=== PATIENT | female | born 1975 | race Caucasian/White ===

== ENCOUNTER → 2018-09-17 | Outpatient (CLI) | payer OTHER ==
[2018-09-17 15:16] LABS: ABSOLUTE MONOCYTES 0.2 thou/uL (0.0-1.2); ABSOLUTE NEUTROPHILS 3.1 thou/uL (1.6-8.1); BASOPHILS 0.7 %; HEMATOCRIT 43.7 % (37.0-47.0); HEMOGLOBIN 14.7 gm/dL (12.0-15.0); LYMPHOCYTES 22.7 %; MCH 29.2 pg (26.0-34.0); MCHC 33.6 g/dL (28.0-37.0); MCV 86.9 fL (80.0-100.0); MONOCYTES 5.5 %; MPV 7.1 fl. (7.2-11.1); NUCLEATED RBCS 0 /100WBC; PLATELET COUNT* 272 thou/uL (150-400); POLYS 70.1 %; RBC 5.03 mil/uL (4.20-5.00); RDW-CV 13.2 % (10.5-14.5); WBC 4.4 thou/uL (4.0-11.0)
[2018-09-17 15:26] LABS: CALCIUM 8.2 mg/dL (8.5-10.1); CREATININE 0.7 mg/dL (0.6-1.3); POTASSIUM 3.6 mmol/L (3.5-5.1)
[2018-09-17 15:32] LABS: ALBUMIN 3.1 g/dL (3.4-5.0); TOTAL BILIRUBIN 0.4 mg/dL (<0.1-1.0); TOTAL PROTEIN 6.8 g/dL (6.4-8.2)
== END ==
LOC: M.CT 14:55
PROVIDERS: Internal Medicine
DX: R10.31 Right lower quadrant pain (principal)

== ENCOUNTER 2019-09-28 15:40 | Emergency (ER) | payer OTHER ==
[~2019-09-28] VITALS: Ht 167.6 cm; Wt 80.7 kg
[2019-09-28] MEDS ORDERED: PROZAC40 MG PO (15:59)
[2019-09-28] MEDS ORDERED: BIRTH CONTROL TAB (15:59)
[2019-09-28] MEDS ORDERED: IMITREX100 MG PO (16:00)
[2019-09-28 17:50] VITALS: BP 115/78
== END 2019-09-28 17:51 | disposition home or self-care (01) ==
LOC: M.ERS 15:40
DX: G43.909 Migraine, unspecified, not intractable, without status migrainosus (principal); Z86.011 Personal history of benign neoplasm of the brain

== ENCOUNTER → 2020-02-24 | Outpatient (CLI) | payer OTHER ==
[~2020-02-24] MED LIST: BIRTH CONTROL TAB; IMITREX100 MG PO; PROZAC40 MG PO
== END ==
LOC: M.RAD 14:02
PROVIDERS: ATTEND Internal Medicine
DX: R05 Cough (principal)